=== PATIENT | male | born 1990 | race Caucasian/White ===

== ENCOUNTER 2018-07-29 10:49 | Emergency (ER) | payer BC ==
[~2018-07-29] VITALS: Ht 195.6 cm; Wt 109.0 kg
[~2018-07-29 10:49] MED LIST: AMOXICILLIN500 MG PO
[2018-07-29] MEDS ORDERED: MEDDOSEPAK PO (12:53)
[2018-07-29] MEDS ORDERED: MOTRIN800 MG PO (12:53)
[2018-07-29] MEDS ORDERED: FLEXERIL PO (12:53)
[2018-07-29 12:58] VITALS: BP 145/92
== END 2018-07-29 13:01 | disposition home or self-care (01) | DRG 563 ==
LOC: ED 10:49
DX: S39.012A Strain of muscle, fascia and tendon of lower back, initial encounter (principal); M54.42 Lumbago with sciatica, left side; F17.210 Nicotine dependence, cigarettes, uncomplicated; X50.9XXA Other and unspecified overexertion or strenuous movements or postures, initial encounter; Y93.89 Activity, other specified; Y92.89 Other specified places as the place of occurrence of the external cause